=== PATIENT | male | born 1960 | race Caucasian/White ===

== ENCOUNTER 2022-03-25 10:23 | Emergency (ER) | payer OTHER, SELFPAY ==
[2022-03-25 10:41] VITALS: BP 162/98; PULSE 79; RESP 16; TEMP 36.7; O2SAT 95
--- NOTE | 2022-03-25 11:46 | ED_ITS ---
HPI - Extremity Problem General: Chief complaint: Extremity Injury, Lower Stated complaint: [facility] Time Seen by Provider: 03/25/22 11:46 History of Present Illness: Mr. Singh is a 61-year-old gentleman with history of hypertension and hyperlipidemia presenting to the emergency department for left lower extremity swelling. He reports hitting the posterior calf on something about a week ago and had a bruise. The contusion part of it has improved however he has now developed swelling and warmth in the calf region. Denies history of blood clots. Denies other signs of systemic illness or changes in health. [facility] for further evaluation of possible DVT. Onset (ago): day(s) Pain Consistency: constant Location: left and lower extremity Quality: aching Radiation: none Relieving factors: nothing Exacerbating factors: walking and palpation Associated symptoms: Reports no associated symptoms Review of Systems General: Reports: 10 or more systems reviewed and unremarkable except in HPI and below PFSH ED PFSH: Medical History Hyperlipidemia Hypertension Family History Other CAD (coronary artery disease) Social History Smoking and tobacco status: never smoked Alcohol intake: never Physical Exam Const: COMMON NORMALS: alert GENERAL APPEARANCE: cooperative and well developed HENMT: COMMON NORMALS: normocephalic and atraumatic HEAD & SCALP: normocephalic and atraumatic Eye: COMMON NORMALS: conjunctivae normal CONJUNCTIVA: Yes conjunctivae normal SCLERA: sclerae normal Neck/C-Spine: COMMON NORMALS: supple GENERAL: Yes trachea midline Resp: COMMON NORMALS: clear to auscultation bilaterally EFFORT & INSPECTION: Yes able to speak in complete sentences AUSCULTATION: clear to auscultation bilaterally Cardio: COMMON NORMALS: regular rate and regular rhythm RATE: regular rate RHYTHM: regular rhythm GI: COMMON NORMALS: Soft to palpation PALPATION: Yes Soft to palpation and No Tenderness to palpation present (GI) Extremity: NARRATIVE EXTREMITY EXAM: Left lower extremity swelling compared to contralateral side, warmth in the calf region, small amount of erythema anterior martinez with what appears to be insect bite. Distal CMS intact. GENERAL: Yes normal exam except as noted and No edema Neuro: COMMON NORMALS: moves all extremities SENSORIUM/ORIENTATION: Yes alert and No Orientation impaired Psych: COMMON NORMALS: mental status grossly normal and Normal thought process present THOUGHT PROCESS: Normal thought process present Course Vital Signs: Vital signs: Vital Signs Temperature 98.1 F 03/25/22 10:41 Pulse Rate 79 03/25/22 10:41 Respiratory Rate 15 03/25/22 14:22 Blood Pressure 162/98 03/25/22 10:41 Pulse Oximetry 95 03/25/22 10:41 Oxygen Delivery Me thod 03/25/22 10:41 MDM - Extremity (Nontraumatic) Medical Decision Making 61-year-old gentleman presenting for evaluation of DVT after traumatic injury. Exam as above. No shortness of breath or chest pain. Patient is nontoxic. DVT study negative. Most likely etiology of symptoms of swelling from trauma/soft tissue injury. The results of ED evaluation were discussed with the patient including prescriptions and/or symptomatic cares (if applicable) including appropriate and responsible use, followup plan, and return precautions. The patient verbalized understanding and felt safe for discharge. Medical Records I reviewed the patient's medical records. Lab Data I reviewed the patient's lab results. Discharge Plan Discharge Patient Disposition: Home Clinical Impression: Left leg swelling, Cellulitis Condition: Stable Prescriptions: No Action dexamethasone sodium phosphate 10 mg/mL solution 10 mg IM ONCE Qty: 1 0RF hydrochlorothiazide 25 mg tablet 25 mg PO DAILY amlodipine 10 mg tablet 10 mg PO DAILY naproxen 500 mg tablet 500 mg PO BID methocarbamol 750 mg tablet 750 mg PO Q8H prednisone 10 mg tablet See Rx Instructions PO DAILY 11 Days Qty: 29 0RF Rx Instructions: Take 4 tablets daily x 3 days then 3 tabs x 3 days then 2 tabs x 3 days then 1 tab x 2 days. Discharge Orders: Discharge ED (Routine); Ordered 03/25/22 Ordered By: Tab Lindquist Referrals: Marzena Maza FNP [Primary Care Provider] - Discharge Diet: Usual diet Discharge Activity: Increase activity as tolerated Patient Instructions: Cellulitis (ED), Leg Edema (ED) Activity Restrictions/Additional Instructions: Thank you for visiting the emergency department. You are seen at evaluated for leg swelling and warmth. The exact cause your symptoms is unclear. As discussed the formal radiology report is not yet back and I will contact you if there is an abnormality. You may use [id number] medications such as acetaminophen and ibuprofen for pain however please do not exceed the daily recommended dosage as listed on the packaging and please keep in mind that many namebrand medications contain the same active ingredients. Please avoid these medications if previously instructed to do so by another physician due to other underlying medical condition. Elevation of the extremity may also help. I will prescribe antibiotics given warmth and some evidence of skin breaks. Please follow-up with your primary care provider. Return to the emergency department for uncontrolled symptoms or anything else that you are concerned about and feel needs Emergency Department evaluation. Coding Level of Care Code ED Storage [employer] Tester for Tarun Arango
--- NOTE | 2022-03-25 11:50 | USCV_ITS ---
Rambo Singh Age: 61 Gender: M : 1960 Exam Date: 03/25/2022 12:19 Ordering Phys: Tab Lindquist MD Technologist: Philip Barrett Exam Location: [facility] – [place]_ Indication: lt leg pain and swelling PROCEDURES: The following venous structures were evaluated: common femoral vein, profunda vein, proximal portion of the greater saphenous vein, superficial femoral vein, and the popliteal vein. In addition, the posterior tibial and peroneal trunk were evaluated. FINDINGS: Normal 2-D Doppler and augmentation and compressibility throughout the lower extremity venous structures. Additional imaging through the proximal calf veins also reveals no thrombus. Limited evaluation of the greater saphenous vein is patent with no thrombus.. CONCLUSIONS No evidence of left lower extremity DVT. Adarsh Sutherland MD (Electronically Signed) Final Date: 25 March 2022 18:01 S
[2022-03-25 14:22] VITALS: RESP 15
== END 2022-03-25 14:23 | disposition home or self-care (01) ==
PROVIDERS: Emergency Provider Emergency Medicine; PCP Nurse Practitioner
DX: L03.116 Cellulitis of left lower limb (principal); M79.89 Other specified soft tissue disorders; I10 Essential (primary) hypertension; E78.5 Hyperlipidemia, unspecified
CPT/HCPCS: 93971; 99284

== ENCOUNTER → 2022-09-27 13:56 | Outpatient (BNVA) | payer OTHER, SELFPAY | PROVIDERS: PCP Nurse Practitioner; Visit Provider Nurse Practitioner | DX: R69 Illness, unspecified (principal) | CPT/HCPCS: 87426 ==